=== PATIENT | female | born 1950 | race Caucasian/White ===

== ENCOUNTER 2021-03-14 09:26 | Outpatient (CLI) | payer MEDICARE ==
[2021-03-14 10:04] LABS: CHLORIDE 106 mmol/L (98-107)
[2021-03-14 10:11] LABS: ALANINE AMINOTRANSFERASE 15 U/L (12-78); ALBUMIN 3.6 g/dL (3.4-5.0); ALKALINE PHOSPHATASE 72 U/L (45-117); ANION GAP 7 mmol/L (5-15); BILIRUBIN,TOTAL 0.3 mg/dL (0.2-1.0); CHOL/HDL RATIO 2.8; CHOLESTEROL, TOTAL 153 mg/dL (140-239); CREATININE 0.73 mg/dL (0.55-1.02); HDL CHOL % 36 % (28-40); HDL CHOLESTEROL (DIRECT) 55 mg/dL (40-60); LDL CHOLESTEROL,CALCULATED 54 mg/dL (54-169); TOTAL PROTEIN 7.5 g/dL (6.4-8.2); TRIGLYCERIDES 219 mg/dL (50-200); VLDL CHOLESTEROL 44 mg/dL (0-25)
== END 2021-03-14 23:59 | disposition home or self-care (01) ==
LOC: LAB 09:26
PROVIDERS: ATTEND Physician Assistant
DX: I10 Essential (primary) hypertension (principal); E78.2 Mixed hyperlipidemia; G47.09 Other insomnia; R63.5 Abnormal weight gain; J30.89 Other allergic rhinitis
CPT/HCPCS: 36415; 80053; 80061